=== PATIENT | female | born 1975 | race Caucasian/White ===

== ENCOUNTER 2016-05-21 19:40 | Emergency (ER) | payer MEDICAID ==
[~2016-05-21] VITALS: Ht 165.1 cm; Wt 59.9 kg
[2016-05-21 20:51] LABS: PATH.CAST-FLAG NOT PRESENT; SPERM-FLAG NOT PRESENT; SRC-FLAG NOT PRESENT; XTAL-FLAG NOT PRESENT; YLC-FLAG NOT PRESENT
[2016-05-21 20:59] LABS: HCG UR OBC PASS
[2016-05-21] MEDS ORDERED: AZITHROMYCIN 500 MG TABLET PO ONE (21:30)
[2016-05-21] MEDS ORDERED: SODIUM CHLORIDE 0.9% 1,000ML IVBOLUS ONE (21:30)
[2016-05-21] MEDS ORDERED: ONDANSETRON 2MG/ML, 2ML IVPush ONE (21:30)
[2016-05-21] MEDS ORDERED: MORPHINE SULFATE 4 MG/ML, 1ML IVPush PRN (21:30)
[2016-05-21] MEDS ORDERED: MORPHINE SULFATE 4 MG/ML, 1ML ONE (21:40)
[2016-05-21] MEDS ORDERED: ONDANSETRON 2MG/ML, 2ML ONE (21:40)
[2016-05-21] MEDS ORDERED: AZITHROMYCIN 500 MG TABLET ONE (21:40)
[2016-05-21] MEDS ORDERED: CEFTRIAXONE 250 MG ONE (21:40)
[2016-05-21] MEDS: CEFTRIAXONE 250 MG IM ONE ×2 (21:58→22:28)
[2016-05-21] MEDS ORDERED: LIDOCAINE 1%, 20ML ONE (22:29)
[2016-05-22 00:26] VITALS: BP 119/79
== END 2016-05-22 00:31 | disposition home or self-care (01) ==
LOC: ED 23:59
DX: A59.01 Trichomonal vulvovaginitis (principal); N30.00 Acute cystitis without hematuria
CPT/HCPCS: 36415; 76830; 81001; 81025; 85025; 87040; 87077; 87086; 87186; 87210; 87491; 87591; 87808; 96361; 96372; 96374; 96375; 99285; J0696; J2405; J7030